=== PATIENT | male | born 1990 | race Asian ===

== ENCOUNTER → 2016-07-11 | Outpatient (CLI) | payer OTHER ==
[~2016-07-11] VITALS: Ht 170.2 cm; Wt 103.1 kg
[~2016-07-11] MED LIST: HYD25 PO
[2016-07-11 08:20] VITALS: BP 133/72
== END | disposition home or self-care (01) ==
LOC: HBOWC 08:07
PROVIDERS: ATTEND Emergency Medicine Undersea and Hyperbaric Medicine
DX: L97.811 Non-pressure chronic ulcer of other part of right lower leg limited to breakdown of skin (principal); S81.802D Unspecified open wound, left lower leg, subsequent encounter; I87.2 Venous insufficiency (chronic) (peripheral); I48.91 Unspecified atrial fibrillation; Z72.89 Other problems related to lifestyle; X58.XXXD Exposure to other specified factors, subsequent encounter
CPT/HCPCS: 97597

== ENCOUNTER → 2016-07-31 | Outpatient (CLI) | payer OTHER ==
[~2016-07-31] MED LIST changes: +TRIAMCINOLONE 0.1% 15 GM OINTMENT TP ONE
[2016-07-31 08:29] VITALS: BP 135/72
== END | disposition home or self-care (01) ==
LOC: HBOWC 07:47
PROVIDERS: ATTEND Emergency Medicine
DX: S81.801D Unspecified open wound, right lower leg, subsequent encounter (principal); I87.2 Venous insufficiency (chronic) (peripheral); L23.89 Allergic contact dermatitis due to other agents; Z72.89 Other problems related to lifestyle; I48.91 Unspecified atrial fibrillation; X58.XXXD Exposure to other specified factors, subsequent encounter
CPT/HCPCS: 97597

== ENCOUNTER → 2016-08-09 | Outpatient (CLI) | payer OTHER ==
[~2016-08-09] MED LIST changes: -TRIAMCINOLONE 0.1% 15 GM OINTMENT TP ONE
== END | disposition home or self-care (01) ==
LOC: RADPV 08:26
PROVIDERS: ATTEND Emergency Medicine
DX: S81.802A Unspecified open wound, left lower leg, initial encounter (principal); S81.801A Unspecified open wound, right lower leg, initial encounter; L97.819 Non-pressure chronic ulcer of other part of right lower leg with unspecified severity; L97.829 Non-pressure chronic ulcer of other part of left lower leg with unspecified severity; X58.XXXA Exposure to other specified factors, initial encounter; Y93.9 Activity, unspecified; Y99.9 Unspecified external cause status; Y92.9 Unspecified place or not applicable
CPT/HCPCS: 93970

== ENCOUNTER → 2016-08-14 | Outpatient (CLI) | payer OTHER ==
[2016-08-14 08:20] VITALS: BP 132/78
== END | disposition home or self-care (01) ==
LOC: HBOWC 07:48
PROVIDERS: ATTEND Emergency Medicine
DX: S81.801D Unspecified open wound, right lower leg, subsequent encounter (principal); I48.91 Unspecified atrial fibrillation; Z72.89 Other problems related to lifestyle; X58.XXXD Exposure to other specified factors, subsequent encounter